=== PATIENT | female | born 1970 | race Caucasian/White ===

== ENCOUNTER 2018-04-12 09:28 | Emergency (ER) | payer OTHER ==
[~2018-04-12] VITALS: Ht 162.6 cm; Wt 65.5 kg
[2018-04-12 09:46] VITALS: Ht 162.6 cm; Wt 65.5 kg
[2018-04-12 11:24] VITALS: BP 120/68
== END 2018-04-12 11:20 | disposition home or self-care (01) ==
LOC: ED 09:28
DX: S63.252A Unspecified dislocation of right middle finger, initial encounter (principal); S80.211A Abrasion, right knee, initial encounter; W18.39XA Other fall on same level, initial encounter; Y93.89 Activity, other specified; Y92.89 Other specified places as the place of occurrence of the external cause; Y99.8 Other external cause status
CPT/HCPCS: Q0092